=== PATIENT | male | born 1985 | race Caucasian/White ===

== ENCOUNTER 2022-07-03 11:56 | Inpatient (IN) | payer MEDICAID ==
[~2022-07-03] VITALS: Ht 175.3 cm; Wt 113.4 kg
[2022-07-03 12:00] VITALS: BP_SYST 169
--- NOTE | 2022-07-03 12:00 | NUR ---
BROUGHT BACK TO BED #8 AND TRIAGED. REPORT GIVEN TO YOAV
--- NOTE | 2022-07-03 12:28 | NUR ---
DR COLEMAN AT BEDSIDE.
[2022-07-03] MEDS ORDERED: LABETALOL HCL 20 MG/4 ML CARTRIDGE IVP ONE ×2 (12:45→13:45)
--- NOTE | 2022-07-03 13:17 | NUR ---
MEDICATED ORDERED, WILL MONITOR FOR EFFECT
[2022-07-03 13:26] LABS: BASOPHILS # (AUTO) 0.1 K/uL (0.0-0.2); BASOPHILS % (AUTO) 0.5 % (0.0-2.0); EOSINOPHILS # (AUTO) 0.2 K/uL (0.0-0.4); EOSINOPHILS % (AUTO) 1.9 % (0.0-4.0); HEMATOCRIT 49.4 % (36-54); HEMOGLOBIN 17.1 g/dL (14.0-18.0); LYMPHOCYTES # (AUTO) 2.3 K/uL (1.0-5.5); LYMPHOCYTES % (AUTO) 20.1 % (20.5-51.5); MEAN CORPUSCULAR HEMOGLOBIN 32 pg (27-31); MEAN CORPUSCULAR HGB CONC 35 % (32-36); MEAN CORPUSCULAR VOLUME 92 fL (79.0-98.0); MONOCYTES # (AUTO) 1.1 K/uL (0.0-1.0); MONOCYTES % (AUTO) 9.6 % (1.7-9.3); NEUTROPHILS # (AUTO) 7.8 K/uL (1.8-7.7); NEUTROPHILS % (AUTO) 67.9 % (40.0-70.0); PLATELET COUNT (AUTO) 123 K/uL (130-430); RED BLOOD CELL COUNT(AUTO) 5.38 MIL/uL (4.2-6.2); RED CELL DISTRIBUTION WIDTH 13.2 % (9.0-15.0); WHITE BLOOD COUNT (AUTO) 11.5 K/uL (4.8-10.8)
[2022-07-03 13:41] LABS: ANION GAP 8 (5-15); CALCIUM 8.5 mg/dL (8.4-11.0); CHLORIDE 99 mmol/L (98-107); CREATININE 0.89 mg/dL (0.55-1.30); GFR AFRICAN AMERICAN 124 mL/min (>90); GLUCOSE 123 mg/dL (70-99); UREA NITROGEN, BLOOD 7 mg/dL (8-21)
[2022-07-03 14:00] LABS: ALANINE AMINOTRANSFERASE 70 U/L (12-78); ASPARTATE AMINOTRANSFERASE 131 U/L (10-37); LIPASE 113 U/L (73-393)
[2022-07-03] MEDS ORDERED: ASPIRIN 325 MG TABLET PO ONE (14:30)
--- NOTE | 2022-07-03 14:36 | NUR ---
PT VERBALIZES HE DOES NOT TAKE ANY MEDICATIONS.
[2022-07-03] MEDS ORDERED: DOCUSATE SODIUM 100 MG CAPSULE PO PRN (15:15)
[2022-07-03] MEDS ORDERED: MORPHINE 2 MG/ML INJ. SYRINGE IVP PRN ×2 (15:15)
[2022-07-03] MEDS ORDERED: ONDANSETRON HCL 4 MG/2 ML VIAL IVP PRN (15:15)
[2022-07-03] MEDS ORDERED: MUPIROCIN 2% TOPICAL OINTMENT 22 GM NS PRN (15:15)
[2022-07-03] MEDS ORDERED: MAGNESIUM SULFATE 50 ML IV PRN (15:15)
[2022-07-03] MEDS ORDERED: ACETAMINOPHEN 325 MG TABLET PO PRN ×2 (15:15→15:30)
[2022-07-03] MEDS ORDERED: POTASSIUM CHLORIDE 20 MEQ TAB.PRT.SR PO PRN (15:15)
[2022-07-03] MEDS ORDERED: POTASSIUM CHLORIDE 20 MEQ/PKT PACKET PO ONE (15:15)
--- NOTE | 2022-07-03 15:39 | NUR ---
Admit bed requested Patient will be admitted to care of . Admitted to TELE unit. Diagnosis NSTEMI Inpatient (Yes or No)YES Observation (Yes or No) NO Orientation concerns or request close to nursing station (Yes or No) NO Covid Status NEGATIVE On vent or bipap NO Isolation requirements NO Needs a sitter NO From Home (Yes or if No enter name of facility) HOME Requires Dialysis (Yes or No) NO Med Rec Completed (Yes of No) YES
--- NOTE | 2022-07-03 16:20 | NUR ---
Admission note Received patient from ER via maria antoniarney, received report from nurse Vences (RN) via SBAR report.Admitted with diagnosis of NSTEMI. Patient is awake, alert, oriented x4, respiration even and unlabored, no c/o pain/SOB,or chest discomfort no signs of distress noted. Patient oriented to hospital room, call light w/in reached, personal belongings checked and Belongings List documented. Call light within reach.
--- NOTE | 2022-07-03 16:30 | NUR ---
Patient will be admitted to care of DR REEVES. Admitted to TELE unit. Will go to room 112B. Belongings list completed. Complete and up to date summary report printed. SBAR report to be given at bedside with opportunity for questions.
[2022-07-03 16:45] VITALS: BP_SYST 169
--- NOTE | 2022-07-03 17:19 | NUR ---
JONI SPOKE WITH SAKSHI JOHNSON REGARDING PATIENT NEW ORDERS RECEIVED
[2022-07-03] MEDS ORDERED: amLODIPine BESYLATE 5 MG TABLET PO ONE (17:30)
--- NOTE | 2022-07-03 17:36 | NUR ---
CONSULTATION PAGED/CALLED Reason for Consultation: [] NSTEMI Person Who was Notified: [] GHANSHYAM Consulting Physician: [] DR POTTER General Farmer Specialty: [] CARDIO Ordering Physician: [] DR SNOW
[2022-07-03 19:00] VITALS: BP_SYST 155
--- NOTE | 2022-07-03 19:15 | NUR ---
change of shift.pt.quiescent.pt.presents elevated b/p status. ordered consult.pt.independent;capable to ambulate/reposition self.no c/o pain,nausea.call light/telephone w/in access of the pt.
[2022-07-03 20:00] VITALS: BP_SYST 155
--- NOTE | 2022-07-03 20:00 | NUR ---
pt.assessed.v/s assessed values note b/p status.elevated.no c/o pain,nausea.pt.apprised snacks/beverages are available w/in the shift.no requests posited@this hour.call light/telephone w/in access of the pt.
[2022-07-03] MEDS: hydrALAZINE HCL 20 MG/ML VIAL IVP PRN (20:17)
--- NOTE | 2022-07-03 21:00 | NUR ---
2100p medications administered.pt.capable to ingest the po medications w/out difficulty.no c/o pain,nausea. call light/telephone w/in access of the pt. Addendum: 07/04/22 at 0103 by Juarez Dunlap RN hydralizine;10mg ivp;prn administered.per b/p status.
--- NOTE | 2022-07-03 22:43 | NUR ---
PAGED DOCTOR TARIQ
--- NOTE | 2022-07-03 22:45 | NUR ---
HIGH ALERT NOTE: Called Dr. connelly back at identified within the medical roster to verify physician authenticity.pt.had requested medication;sleep. ordered ambien;5mg po x1.
[2022-07-03 23:00] VITALS: BP_SYST 158
[2022-07-03 23:05] VITALS: BP_SYST 154
[2022-07-03] MEDS: ZOLPIDEM TARTRATE 5 MG TABLET PO ONE ×2 (23:29→23:36)
--- NOTE | 2022-07-03 23:30 | NUR ---
ambien;5mg,hydralizine;50mg initial dose administered.dr.murugan alegre returned page.pt.had requested medication;sleep. dr.samant alegre re;elevated b/p. ordered hydralizine:50mg po;bid;initial dose tonight.
[2022-07-03] MEDS: hydrALAZINE HCL 25 MG TABLET PO SCH (23:37)
[2022-07-04] VITALS (7 sets, daily range): BP systolic 141–166
--- NOTE | 2022-07-04 | NUR ---
pt.assessd.pt.quiescent.v/s assessed note b/p status elevated.no c/o pain,nausea.sxueaz.pt.capblto reiop self.ca;light t/elpghp w/aic ess of thpt.
--- NOTE | 2022-07-04 02:00 | NUR ---
pt.assessed.pt.quiescent.per flacc pain mgx pt.absent facial grimaces/body posturing.pt.capable to reposition self. call light/telephone w/in access of the pt.
--- NOTE | 2022-07-04 03:04 | NUR ---
PAGED DOCTOR POTTER FOR CRITICAL
--- NOTE | 2022-07-04 03:10 | NUR ---
returned page.critical value;troponin conveyed to .no orders posited per . to assess the pt.in the am.
--- NOTE | 2022-07-04 04:00 | NUR ---
pt.assessd.pt.quiescent.per flacc pain mgx pt.absent facial grimaces/body posturing.pt.capable to reposition self. call light/telephone w/in access of the pt.
[2022-07-04] MEDS: hydrALAZINE HCL 20 MG/ML VIAL IVP PRN (05:21)
[2022-07-04 05:55] LABS: BASOPHILS # (AUTO) 0.1 K/uL (0.0-0.2); BASOPHILS % (AUTO) 0.5 % (0.0-2.0); EOSINOPHILS # (AUTO) 0.2 K/uL (0.0-0.4); EOSINOPHILS % (AUTO) 2.1 % (0.0-4.0); HEMATOCRIT 44.4 % (36-54); HEMOGLOBIN 15.4 g/dL (14.0-18.0); LYMPHOCYTES # (AUTO) 2.8 K/uL (1.0-5.5); LYMPHOCYTES % (AUTO) 24.8 % (20.5-51.5); MEAN CORPUSCULAR HEMOGLOBIN 32 pg (27-31); MEAN CORPUSCULAR HGB CONC 35 % (32-36); MEAN CORPUSCULAR VOLUME 93 fL (79.0-98.0); MONOCYTES # (AUTO) 1.2 K/uL (0.0-1.0); NEUTROPHILS # (AUTO) 6.9 K/uL (1.8-7.7); NEUTROPHILS % (AUTO) 61.6 % (40.0-70.0); PLATELET COUNT (AUTO) 110 K/uL (130-430); RED BLOOD CELL COUNT(AUTO) 4.79 MIL/uL (4.2-6.2); RED CELL DISTRIBUTION WIDTH 13.2 % (9.0-15.0); WHITE BLOOD COUNT (AUTO) 11.3 K/uL (4.8-10.8)
[2022-07-04 06:58] LABS: CALCIUM 8.3 mg/dL (8.4-11.0); CREATININE 0.88 mg/dL (0.55-1.30)
--- NOTE | 2022-07-04 07:30 | NUR ---
Opening notes Patient laying in bed. A/O x 4, Mongolian speaking. Patient Breathing even and unlabored on room air. No pain, no distress, no SOB. Patient is on a regular diet. Patient has LFA 20g. Patient is able to ambulate by himself. Bed is locked in lowest position. Call light within reach, all needs met, will continue with plan of care.
[2022-07-04] MEDS: ASPIRIN 81 MG TAB.CHEW PO SCH (08:29)
[2022-07-04] MEDS: LISINOPRIL 10 MG TABLET (PRINIVIL) PO SCH (08:29)
[2022-07-04] MEDS: hydrALAZINE HCL 25 MG TABLET PO SCH ×2 (08:30→20:19)
[2022-07-04] MEDS ORDERED: amLODIPine BESYLATE 5 MG TABLET PO SCH (09:00)
[2022-07-04] MEDS: METOPROLOL TARTRATE 50 MG TABLET PO SCH ×2 (09:45→20:20)
--- NOTE | 2022-07-04 12:30 | NUR ---
Noon Notes Patient laying in bed. A/O x 4, Upper Sorbian speaking. Patient Breathing even and unlabored on room air. No pain, no distress, no SOB. Bed is locked in lowest position. Call light within reach, all needs met, will continue with plan of care.
--- NOTE | 2022-07-04 16:24 | NUR ---
Dietitian Recommendations * Cardiac diet * Consider lipid panel lab draw * RD provided HTN/heart-healthy MNT LP, MS, RD Please refer to Nutrition Assessment for details. Addendum: 07/04/22 at [address] Amended: Links added.
--- NOTE | 2022-07-04 18:31 | NUR ---
Closing Notes Patient laying in bed watching TV and having dinner. A/O x 4, Upper Sorbian speaking. Patient Breathing even and unlabored on room air. No pain, no distress, no SOB. Patient is on a regular diet. Patient has LFA 20g. Patient is able to ambulate by himself. Bed is locked in lowest position. Call light within reach, all needs met, will continue with plan of care.
[2022-07-05] VITALS: BP_SYST 136
[2022-07-05 06:12] LABS: BASOPHILS # (AUTO) 0.1 K/uL (0.0-0.2); BASOPHILS % (AUTO) 0.4 % (0.0-2.0); EOSINOPHILS # (AUTO) 0.3 K/uL (0.0-0.4); EOSINOPHILS % (AUTO) 2.3 % (0.0-4.0); HEMATOCRIT 47.2 % (36-54); HEMOGLOBIN 16.1 g/dL (14.0-18.0); LYMPHOCYTES # (AUTO) 2.7 K/uL (1.0-5.5); LYMPHOCYTES % (AUTO) 21.7 % (20.5-51.5); MEAN CORPUSCULAR HEMOGLOBIN 32 pg (27-31); MEAN CORPUSCULAR HGB CONC 34 % (32-36); MEAN CORPUSCULAR VOLUME 94 fL (79.0-98.0); MONOCYTES % (AUTO) 8.5 % (1.7-9.3); NEUTROPHILS # (AUTO) 8.2 K/uL (1.8-7.7); NEUTROPHILS % (AUTO) 67.1 % (40.0-70.0); PLATELET COUNT (AUTO) 124 K/uL (130-430); RED BLOOD CELL COUNT(AUTO) 5.04 MIL/uL (4.2-6.2); RED CELL DISTRIBUTION WIDTH 13.3 % (9.0-15.0); WHITE BLOOD COUNT (AUTO) 12.3 K/uL (4.8-10.8)
[2022-07-05 06:42] LABS: ALBUMIN 2.8 g/dL (3.4-4.8); CALCIUM 8.7 mg/dL (8.4-11.0); CREATININE 0.69 mg/dL (0.55-1.30); THYROID STIMULATING HORMONE 1.07 uIu/mL (0.34-4.82); TOTAL BILIRUBIN 0.9 mg/dL (0.0-1.0)
[2022-07-05 07:40] VITALS: BP_SYST 142
--- NOTE | 2022-07-05 07:40 | NUR ---
Opening Notes Patient laying in bed. A/O x 4, Lithuanian speaking. Patient Breathing even and unlabored on room air. No pain, no distress, no SOB. Patient is on a CARDIAC/CCHO diet. Patient has LFA 20g. Patient is able to ambulate by himself. Bed is locked in lowest position. Call light within reach, all needs met, will continue with plan of care.
[2022-07-05] MEDS ORDERED: HYDR-4039 PO (08:37)
[2022-07-05] MEDS ORDERED: LISI10TA29 PO (08:38)
[2022-07-05] MEDS ORDERED: METO-442 PO (08:38)
[2022-07-05] MEDS ORDERED: AZIT500T3 PO (08:40)
[2022-07-05] MEDS ORDERED: AZITHROMYCIN 250 MG TABLET PO SCH (09:00)
[2022-07-05] MEDS: ASPIRIN 81 MG TAB.CHEW PO SCH (09:19)
[2022-07-05] MEDS: METOPROLOL TARTRATE 50 MG TABLET PO SCH (09:21)
[2022-07-05] MEDS: hydrALAZINE HCL 25 MG TABLET PO SCH (09:22)
[2022-07-05] MEDS: LISINOPRIL 10 MG TABLET (PRINIVIL) PO SCH (09:23)
[2022-07-05 12:00] VITALS: BP_SYST 137
[2022-07-05 12:42] VITALS: BP_SYST 137
--- NOTE | 2022-07-05 13:30 | NUR ---
D/C Patient Patient given medication reconciliation form and D/C instructions. Exit Care provided. Patient verbalized understanding. MD Arredondo discussed with patient the results and treatment provided. Ambulatory with steady gait for discharge to home. Patient in stable condition, ID band removed. IV catheter removed, intact and dressing applied, no active bleeding. Patient educated on pain management. All belongings sent with patient.
== END 2022-07-05 13:30 | disposition home or self-care (01) | DRG 199 ==
LOC: SED 11:56 → STU 15:06
PROVIDERS: ADMIT Family Medicine; ATTEND Family Medicine
DX: I16.0 Hypertensive urgency (principal); I21.A1 Myocardial infarction type 2; R65.10 Systemic inflammatory response syndrome (SIRS) of non-infectious origin without acute organ dysfunction; E44.1 Mild protein-calorie malnutrition; E83.51 Hypocalcemia; E87.6 Hypokalemia; I10 Essential (primary) hypertension; F17.210 Nicotine dependence, cigarettes, uncomplicated; Z20.822 Contact with and (suspected) exposure to COVID-19; R74.01 Elevation of levels of liver transaminase levels; E66.9 Obesity, unspecified; F10.10 Alcohol abuse, uncomplicated; Y90.9 Presence of alcohol in blood, level not specified; Z79.899 Other long term (current) drug therapy; Z91.199 Patient's noncompliance with other medical treatment and regimen due to unspecified reason; Z82.49 Family history of ischemic heart disease and other diseases of the circulatory system
CPT/HCPCS: 36415; 71045; 80048; 80053; 80061; 83690; 83735; 83880; 84443; 84484; 85025; 93005; 93306; 96374; 96376; 99285; G0378; J0360; J3475; Q0144